=== PATIENT | female | born 1965 | race Caucasian/White ===

== ENCOUNTER 2017-01-27 17:49 | Emergency (ER) | payer MEDICARE, OTHER ==
[2017-01-27] MEDS ORDERED: KETOROLAC TROMETHAMINE 60 MG/2 ML VIAL IM ONE ×2 (19:28→19:36)
--- NOTE | 2017-01-27 19:38 | ERNOTE ---
Lower Extremity HPI - General Lower Extremities Pain: leg: right Time Seen by Provider: 01/27/17 19:14 Source: patient Exam Limitations: no limitations - Immun/Allergies/Home Medications Immunizations: IMMUNIZATION HX Immunizations Up to Date No History of Influenza Vaccine No Hx Pneumococcal Vaccination No Allergies/Adverse Reactions: Allergies Allergy/AdvReac Type Severity Reaction Status Date / Time No Known Allergies Allergy Verified 03/07/16 18:50 Home Medications: HOME MEDICATIONS Glimepiride 4 mg PO BID 12/08/12 [Last Taken 12/08/12 08:00 4 mg] Levothyroxine Sodium [Synthroid] 25 mcg PO DAILY 12/08/12 [Last Taken 12/08/12 07:00 25 mcg] Fluoxetine HCl 40 mg PO DAILY #30 12/12/12 [Last Taken 12/08/12 08:00 0800] Ibuprofen [Motrin] 800 mg PO Q8H PRN #1 bottle 12/12/12 [Last Taken Unknown] Tramadol HCl 50 tab PO QID PRN #0 12/12/12 [Last Taken 12/07/12 50 mg] metFORMIN HCL [Metformin HCl ER] 1,000 mg PO BIDWM #0 12/12/12 [Last Taken 08:00 500 mg] Insulin Glargine,Hum.rec.anlog [Lantus] 102 unit SQ BID 05/30/13 [Last Taken Unknown] Rosuvastatin Calcium [Crestor] 20 mg PO DAILY 05/30/13 [Last Taken Unknown] Albuterol Sulfate [Proair Respiclick] 90 mcg IH Q4H PRN 12/30/15 [Last Taken Unknown] Insulin Aspart [Novolog Flexpen] 100 unit SQ ACHS 12/30/15 [Last Taken Unknown] Lisinopril [Zestril] 10 mg PO DAILY 12/30/15 [Last Taken Unknown] Metoclopramide HCl [Reglan] 10 mg PO BID 12/30/15 [Last Taken Unknown] Omeprazole [Prilosec] 20 mg PO DAILY 12/30/15 [Last Taken Unknown] Pramipexole Di-HCl [Mirapex] 0.25 mg PO HS 12/30/15 [Last Taken Unknown] Ranitidine HCl [Zantac] 150 mg PO BID 12/30/15 [Last Taken Unknown] HYDROcodone/ACETAMINOPHEN [[place]amora 5-325] 1 tab PO Q6H PRN #20 tab 03/07/16 [Last Taken Unknown] Naproxen [Naprosyn] 500 mg PO BID #40 tablet 01/27/17 [Last Taken Unknown] - History of Present Illness Narrative: Patient is morbidly obese and has chronic knee and leg pain that she take tramadol for. Yesterday she started to have groin pain that she could handle till she got up this afternoon to go to the bathroom and felt something pull in her leg, the pain has been worse since, took ibuprofen and tramadol without much relieve, pain and difficulty with ambulationg, denies any other symptoms Review of Systems - Review of Systems Constitutional: Absent: recent illness, fever ENT: Absent: nose congestion, sore throat Respiratory: Absent: shortness of breath, cough Cardiology: Absent: chest pain Gastrointestinal/Abdominal: Absent: nausea, vomiting, abdominal pain Genitourinary: Present: no symptoms reported Musculoskeletal: Present: See HPI. Absent: back pain, neck pain Neurological: Absent: headache, weakness, numbness - Patient's Past Medical History Patient History - Medical: Chronic Pain, Diabetes Type 2 Insulin Dependent, Depression, GERD, Hypothyroidism, Obesity, Other Patient History - Cardiac/Respiratory: Hypertension, Hyperlipidemia Patient History - Cancer: No Hx of Cancer Patient History - Surgical Procedures: Cholecystectomy, Other Patient History - Other: None - Family History Father Family History - Medical: Mother Family History - Medical: Family History - Cardiac/Respiratory: Pneumonia - Social History Living Situations: home Abuse History: No History of abuse Psych History: No pertinent hx Smoking Status: Never smoker Have you smoked in the past 12 months: No Alcohol Use: none Drug Use: none - Immunizations Immunizations Up to Date: No Hx Pneumococcal Vaccination: No History of Influenza Vaccine: No Physical Exam - Physical Exam General Appearance: Present: wd/wn, alert, no apparent distress, obese - morbid! !! Respiratory: Present: no respiratory distress, normal breath sounds, no accessory muscle use, lungs clear Cardiovascular/Chest: Present: regular rate, rhythm Gastrointestinal/Abdominal: Present: nontender Extremity Exam: Present: normal inspection, other - had to lift large pannus to get to hip, no pain on palpation of hip, pain on palpation of right mid thigh medially (adductors), no pain on internal rotation but thigh pain on external rotation of hip Neurological Exam: Present: alert, oriented, normal mood/affect, no motor/ sensory deficits Skin Exam: Present: normal color, warm/dry ED Progress - Vital Signs Patient's Vital Signs:: I have reviewed the patient's vital signs. Vital Signs: Vital Signs 01/27/17 17:50 Temperature 36.3 C L Pulse Rate 97 Respiratory 18 Rate Blood Pressure 124/70 O2 Sat by Pulse 92 Oximetry - Progress/Reassessment Chief Complaint: Lower Extremity Pain/ Injury Progress Note-Subjective: 01/27/17 20:17 pain better after toradol, but she still has a hard time getting around and would like another pain shot 01/27/17 20:39 better after nubain Departure Clinical Impression: Muscle strain of right thigh Qualifiers: Encounter type: initial encounter Qualified Code(s): S76.911A - Strain of unspecified muscles, fascia and tendons at thigh level, right thigh, initial encounter - Departure Disposition: Home self-care Condition: Good Instructions: Muscle Strain, [id number] Additional Instructions: use the naproxen instead of the ibuprofen call your doctor after the weekend for follow up Referrals: Barber Juan MD [Primary Care Provider] - Prescriptions: Naproxen [Naprosyn] 500 mg PO BID #40 tablet
--- OUTSIDE RECORDS SUMMARY | 2017-01-27 19:43 | XMS REPORT | Continuity of Care Document ---
:1965 Author Organization [facility] ([facility]) Address [address] [place] [address] Phone [phone] Care Team Providers Name Role Phone Esdras Pack Primary Care Provider [phone] Source Comments This disclosure is being made pursuant to the Care Everywhere program, applicable federal and state laws, and may not contain all informaitonavailable regarding this patient.[facility] ([facility]) Active Allergies and Adverse Reactions No Known Allergies Current Medications Prescription Sig. Disp. Refills Start Date End Date Status lisinopril 20 mg Take 20 mg by mouth Active tablet daily. FLUoxetine 20 mg Take 40 mg by mouth Active capsule daily. traMADol 50 mg tablet Take 50 mg by mouth 4 Active times daily as needed. rosuvastatin (CRESTOR) Take 10 mg by mouth Active 10 mg tablet every evening. glimepiride 1 mg Take 1 mg by mouth 2 Active tablet times daily with meals. metFORMIN 500 mg Take 500 mg by mouth 2 Active tablet times daily with meals. ibuprofen 800 mg Take 800 mg by mouth Active tablet every 8 hours as needed. insulin glargine inject 30 Units Active (LanTUS SOLOSTAR) 100 subcutaneously daily. unit/mL (3 mL) injection pen LEVOTHYROXINE 50 mcg 03/02/2014 Active tablet NOVOLOG FLEXPEN 100 01/22/2014 Active unit/mL (3 mL) injection pen POTASSIUM CHLORIDE 20 03/24/2014 Active mEq tablet SUPPLY BD insulin UF 02/24/2014 Active original 29 x 12.7 MM pen needle TOLTERODINE 4 mg XR 03/08/2014 Active capsule Active Problems Problem Noted Date Eyelid lesion 03/31/2014 Ventral hernia 07/25/2012 Diabetes mellitus 07/25/2012 Hypertension 07/25/2012 Hyperlipidemia 07/25/2012 Social History Tobacco Use Types Packs/Day Years Used Date Never Smoker Smokeless Tobacco: Never Used Alcohol Use Drinks/Week oz/Week Comments No Last Filed Vital Signs Vital Sign Reading Time Taken Blood Pressure 132/86 03/31/2014 3:09 PM CDT Pulse 106 03/31/2014 2:17 PM CDT Temperature 37.2 C (99 F) 03/31/2014 2:17 PM CDT Respiratory Rate - - Height 1.515 m (4' 11.65") 07/25/2012 11:34 AM CDT Weight 180.441 kg (397 lb 12.8 oz) 07/25/2012 11:34 AM CDT Body Mass Index 78.62 07/25/2012 11:34 AM CDT Oxygen Saturation - - Plan of Care Health Maintenance Due Date Last Done Comments HCV Screening 1965 Hepatitis B Vaccine (1 of 3 - Primary Series) 1965 Tdap Vaccine 1975 DIABETIC: Cholesterol 1982 Diabetic: Hdl 1982 DIABETIC: Hemoglobin A1C 1982 Diabetic: Ldl 1982 DIABETIC: Microalbumin 1982 DIABETIC: Triglycerides 1982 MMR Vaccine 1982 Td Vaccine 1982 Pneumococcal Vaccine (1 of 1 - PPSV23) 1983 Cervical Cancer Screening 1994 Mammogram 2004 DIABETIC: Foot Exam 08/01/2012 DIABETIC: Retinal Eye Exam 08/01/2012 Colonoscopy 2014 Influenza Vaccine: Seasonal (#1) 05/23/2016 Results from Last 3 Months Not on file
[2017-01-27] MEDS ORDERED: NALBUPHINE HCL 20 MG/ML AMPUL IM ONE (20:17)
[2017-01-27] MEDS ORDERED: NALBUPHINE HCL 20 MG/ML AMPUL ONE (20:18)
[2017-01-27 20:58] VITALS: BP 128/68
== END 2017-01-27 20:40 | disposition home or self-care (01) ==
LOC: ER 17:49
DX: S76.911A Strain of unspecified muscles, fascia and tendons at thigh level, right thigh, initial encounter (principal); X50.1XXA Overexertion from prolonged static or awkward postures, initial encounter

== ENCOUNTER 2017-05-17 09:22 | Emergency (ER) | payer MEDICARE, OTHER ==
[2017-05-17 09:48] VITALS: BP 145/78
[2017-05-17] MEDS ORDERED: KETOROLAC TROMETHAMINE 60 MG/2 ML VIAL IM ONE (10:01)
[2017-05-17] MEDS ORDERED: DIPHTH,PERTUSS(ACELL),TET VAC 0.5 ML VIAL IM ONE ×2 (10:01→10:04)
[2017-05-17] MEDS ORDERED: KETOROLAC TROMETHAMINE 30 MG/ML VIAL ONE (10:04)
--- NOTE | 2017-05-17 10:20 | ERNOTE ---
Animal Bite ER Date of Service: 05/17/17 Presenting Symptoms: bitten Time Seen by Provider: 05/17/17 09:55 Source: patient Immunizations: IMMUNIZATION HX Immunizations Up to Date No History of Influenza Vaccine No Hx Pneumococcal Vaccination No Allergies/Adverse Reactions: Allergies No Known Allergies Allergy (Verified 03/07/16 18:50) Home Medications: HOME MEDICATIONS Glimepiride 4 mg PO BID 12/08/12 [Last Taken 12/08/12 08:00 4 mg] Levothyroxine Sodium [Synthroid] 25 mcg PO DAILY 12/08/12 [Last Taken 12/08/12 07:00 25 mcg] Ibuprofen [Motrin] 800 mg PO Q8H PRN #1 bottle 12/12/12 [Last Taken Unknown] Insulin Glargine,Hum.rec.anlog [Lantus] 102 unit SQ BID 05/30/13 [Last Taken Unknown] Rosuvastatin Calcium [Crestor] 20 mg PO DAILY 05/30/13 [Last Taken Unknown] Albuterol Sulfate [Proair Respiclick] 90 mcg IH Q4H PRN 12/30/15 [Last Taken Unknown] Lisinopril [Zestril] 10 mg PO DAILY 12/30/15 [Last Taken Unknown] Metoclopramide HCl [Reglan] 10 mg PO BID 12/30/15 [Last Taken Unknown] Omeprazole [Prilosec] 20 mg PO DAILY 12/30/15 [Last Taken Unknown] Pramipexole Di-HCl [Mirapex] 0.25 mg PO HS 12/30/15 [Last Taken Unknown] Ranitidine HCl [Zantac] 150 mg PO BID 12/30/15 [Last Taken Unknown] Amox Tr/Potassium Clavulanate [Augmentin 875-125 Tablet] 1 each PO Q12H #20 tablet 05/17/17 [Last Taken Unknown] Bupropion HCl [Wellbutrin Xl] 300 mg PO DAILY 05/17/17 [Last Taken Unknown] Cholecalciferol (Vitamin D3) [Vitamin D3] 5,000 unit PO DAILY 05/17/17 [Last Taken Unknown] Escitalopram Oxalate [Lexapro] 10 mg PO DAILY 05/17/17 [Last Taken Unknown] Exenatide [Byetta] 5 mcg SQ BID 05/17/17 [Last Taken Unknown] Narrative: 51 year old female presents to the ER for a dog bite. Patient states her 2 dogs were fighting and she stick her left hand in between them to break up the fight when she was bitten. patient has several small superficial skin tears around her thumb and a 1cm laceration. patient states that they were her 2 dogs , and they are up to date on their shots. the dogs are small less that 15 pounds each. Date (Duration): 05/17/17 Onset Time: today Location of Incident: Reports: home Animal Type: Reports: dog, family pet Animal Appearance: healthy Animal's Immunization Status: Reports: UTD Observation/Capture: Reports: animal known Context of Attack: Reports: animals fighting Severity of injury: Reports: bitten Location of Injury: Reports: upper extremity (L) Associated symptoms: Reports: pain on movement. Denies: numbness distally, tingling Review of Systems - Review of Systems Constitutional: Present: no symptoms reported EYE: Present: no symptoms reported ENT: Present: no symptoms reported Respiratory: Present: no symptoms reported Cardiology: Present: no symptoms reported Gastrointestinal/Abdominal: Present: no symptoms reported Genitourinary: Present: no symptoms reported Musculoskeletal: Present: See HPI Skin: Present: See HPI Neurological: Present: no symptoms reported Endocrine: Present: no symptoms reported Hematologic/Lymphatic: Present: no symptoms reported Psych: Present: no symptoms reported All Other Systems: All systems neg except as marked - Patient's Past Medical History Patient History - Medical: Chronic Pain, Diabetes Type 2 Insulin Dependent, Depression, GERD, Hypothyroidism, Obesity, Other Patient History - Cardiac/Respiratory: Hypertension, Hyperlipidemia Patient History - Cancer: No Hx of Cancer Patient History - Surgical Procedures: Cholecystectomy, Other Patient History - Other: None - Family History Father Family History - Medical: Mother Family History - Medical: Family History - Cardiac/Respiratory: Pneumonia - Social History Living Situations: home Abuse History: No History of abuse Psych History: No pertinent hx Alcohol Use: none Drug Use: none - Immunizations Immunizations Up to Date: No Hx Pneumococcal Vaccination: No History of Influenza Vaccine: No Physical Exam - Physical Exam General Appearance: Present: wd/wn, alert, no apparent distress Head Exam: Present: normal inspection, no evidence of injury Eye Exam: Normal inspection: bilateral Ears, Nose, Throat: Present: normal ENT inspection Neck: Present: normal inspection, nontender Respiratory: Present: no respiratory distress, normal breath sounds, lungs clear Cardiovascular/Chest: Present: regular rate, rhythm, normal peripheral pulses Peripheral Pulses: N=norm/S=strong/W=weak/B=bound/A=absent: Radial (R): Normal, Radial (L): Normal, Dorsalis-pedis (R): Normal, Dorsalis-pedis (L): Normal Gastrointestinal/Abdominal: Present: normal bowel sounds, nontender, soft Back Exam: Present: normal inspection, normal range of motion Extremity Exam: Present: normal except - - left thumb several small superficial lacerations and 1 cm lac at base of themb. ROM is WNL for patient. Min bleeding. , normal range of motion. Absent: bony tenderness, joint redness, joint swelling Neurological Exam: Present: alert, oriented, normal mood/affect Skin Exam: Present: normal color, warm/dry Lymphatic Exam: Present: no adenopathy ED Progress - Vital Signs Vital Signs: Vital Signs 05/17/17 09:36 Temperature 37.1 C Pulse Rate 20 L Respiratory 18 Rate Blood Pressure 145/78 O2 Sat by Pulse 93 Oximetry - X-Ray X-Ray #1 X-Ray: hand Interpretation: Reviewed by me X-ray Comments: no foreign body observed. no acute fx observed. - Progress/Reassessment Chief Complaint: Animal Bite Procedures Left Lower Distal Hand 1st Digit I & D Prep: betadine prep Wound's Depth/Shape: superficial Wound Explored: clean, in bloodless field, no foreign body Wound Intervention: irrigated w/saline Wound Repaired With: Steri-strips Layer Closure: Simple Wound Dressing: sterile dressing applied Complications: Pt albino procedure well Plan - Plan Plan: home with dressing change supplies, and abx, patient will follow up with PCP in 3 days for wound check Departure Clinical Impression: Dog bite of finger Qualifiers: Encounter type: initial encounter Qualified Code(s): S61.259A - Open bite of unspecified finger without damage to nail, initial encounter; W54.0XXA - Bitten by dog, initial encounter - Departure Disposition: Home Follow Up Needed Condition: Good Instructions: Puncture Wound, [id number], How to Change Your Dressing, Easy- to-Read, Animal Bite Additional Instructions: continue any previous home medications. take antibiotics as prescribed. Follow up with your Dr Mccauley 1pm on Monday for a wound check. change your bandaid daily. Return to ER if pain is not able to be controlled with OTC pain medication, or your develop any s/s of infection. Referrals: Pawel García MD [Primary Care Provider] - Prescriptions: Amox Tr/Potassium Clavulanate [Augmentin 875-125 Tablet] 1 each PO Q12H #20 tablet
== END 2017-05-17 10:50 | disposition home or self-care (01) ==
LOC: ER 09:22
DX: S61.052A Open bite of left thumb without damage to nail, initial encounter (principal); E03.9 Hypothyroidism, unspecified; E11.9 Type 2 diabetes mellitus without complications; Z79.4 Long term (current) use of insulin; I10 Essential (primary) hypertension; E78.5 Hyperlipidemia, unspecified; K21.9 Gastro-esophageal reflux disease without esophagitis; F32.9 Major depressive disorder, single episode, unspecified; W54.0XXA Bitten by dog, initial encounter; Y92.009 Unspecified place in unspecified non-institutional (private) residence as the place of occurrence of the external cause; Z23 Encounter for immunization

== ENCOUNTER 2017-06-02 18:29 | Emergency (ER) | payer MEDICARE, OTHER ==
[2017-06-02] MEDS ORDERED: MORPHINE SULFATE 4 MG/ML SYRG IV ONE (18:36)
[2017-06-02] MEDS ORDERED: MORPHINE SULFATE 4 MG/ML SYRG ONE (18:40)
[2017-06-02 19:13] LABS: Hematocrit 45.8 % (37.0-47.0); Hemoglobin 15.1 gm/dL (12.5-16.0); Mean Cell Volume 87.1 fl (78-100); Mean Corpuscular Hemoglobin 28.7 pg (27-31); Mean Platelet Volume 9.8 fl (6.0-9.5); Neutrophil # 11.6 K/mm3 (1.3-6.0); Neutrophil % 88.5 % (42-75.0); Platelet Count 262 K/mm3 (150-450); Red Blood Count 5.26 M/mm3 (4.2-5.4); Red Cell Distribution Width 13.7 % (11.5-14.0); White Blood Count 13.1 K/mm3 (4.0-10.5)
[2017-06-02] MEDS ORDERED: MORPHINE SULFATE 2 MG/ML DISP.SYRIN ONE (19:13)
[2017-06-02] MEDS ORDERED: MORPHINE SULFATE 2 MG/ML DISP.SYRIN IV ONE (19:18)
[2017-06-02] MEDS ORDERED: NORMAL SALINE 1,000 ML IV ONE (19:19)
[2017-06-02 19:29] LABS: Albumin * 3.3 gm/dl (3.4-5.0); Anion Gap 16.9 mmol/L (6.8-13.8); BUN/Creatinine Ratio 13.3 (9.0-21.6); Bilirubin, Total 0.9 mg/dL (0.0-1.1); Ca. Corrected For Albumin 9.3 mg/dL (8.4-10.2); Calcium * 9.1 mg/dL (7.9-10.9); Carbon Dioxide 25.3 mmol/L (24-32.6); Potassium 5.2 mmol/L (3.4-4.6)
--- NOTE | 2017-06-02 19:48 | ERNOTE ---
Abdominal HPI - Narrative Date of Service: 06/02/17 - General Chief Complaint: Abdominal Pain Source: patient Exam Limitations: no limitations - Immun/Allergies/Home Medications Immunizatons: IMMUNIZATION HX Immunizations Up to Date Yes History of Influenza Vaccine Yes Hx Pneumococcal Vaccination No Allergies/Adverse Reactions: Allergies No Known Allergies Allergy (Verified 03/07/16 18:50) Home Medications: HOME MEDICATIONS Glimepiride 4 mg PO BID 12/08/12 [Last Taken 12/08/12 08:00 4 mg] Levothyroxine Sodium [Synthroid] 50 mcg PO DAILY 12/08/12 [Last Taken 12/08/12 07:00 25 mcg] Ibuprofen [Motrin] 800 mg PO Q8H PRN #1 bottle 12/12/12 [Last Taken Unknown] Insulin Glargine,Hum.rec.anlog [Lantus] 80 unit SQ BID 05/30/13 [Last Taken Unknown] Rosuvastatin Calcium [Crestor] 20 mg PO DAILY 05/30/13 [Last Taken Unknown] Albuterol Sulfate [Proair Respiclick] 90 mcg IH Q4H PRN 12/30/15 [Last Taken Unknown] Lisinopril [Zestril] 10 mg PO DAILY 12/30/15 [Last Taken Unknown] Metoclopramide HCl [Reglan] 10 mg PO TID 12/30/15 [Last Taken Unknown] Omeprazole [Prilosec] 20 mg PO DAILY 12/30/15 [Last Taken Unknown] Pramipexole Di-HCl [Mirapex] 0.25 mg PO HS 12/30/15 [Last Taken Unknown] Ranitidine HCl [Zantac] 150 mg PO BID 12/30/15 [Last Taken Unknown] Amox Tr/Potassium Clavulanate [Augmentin 875-125 Tablet] 1 each PO Q12H #20 tablet 05/17/17 [Last Taken Unknown] Bupropion HCl [Wellbutrin Xl] 300 mg PO DAILY 05/17/17 [Last Taken Unknown] Cholecalciferol (Vitamin D3) [Vitamin D3] 5,000 unit PO DAILY 05/17/17 [Last Taken Unknown] Escitalopram Oxalate [Lexapro] 10 mg PO DAILY 05/17/17 [Last Taken Unknown] Exenatide [Byetta] 5 mcg SQ BID 05/17/17 [Last Taken Unknown] - History of Present Illness Narrative: onset of abdominal pain this am with nausea and vomiting with abdominal mass history of sub umbilcal hernia that prior to this was reducible, hernia came out this am and has not reduced Timing: constant, getting worse Quality: severe, fullness, sharpness Activities at Onset: none Modifying Factors - (Improves): Present: other - none Associated Symptoms: Present: nausea, vomiting, loss of appetite Prior Abdominal Problems: Present: similar symptoms Review of Systems - Review of Systems Constitutional: Present: weakness, malaise EYE: Present: no symptoms reported ENT: Present: no symptoms reported Respiratory: Present: no symptoms reported Cardiology: Present: no symptoms reported Gastrointestinal/Abdominal: Present: See HPI, nausea, vomiting, abdominal pain Genitourinary: Present: no symptoms reported Musculoskeletal: Present: no symptoms reported Skin: Present: no symptoms reported Neurological: Present: no symptoms reported Endocrine: Present: no symptoms reported Hematologic/Lymphatic: Present: no symptoms reported Psych: Present: no symptoms reported All Other Systems: All systems neg except as marked - Patient's Past Medical History Patient History - Medical: Chronic Pain, Diabetes Type 2 Insulin Dependent, Depression, GERD, Hypothyroidism, Obesity, Other Patient History - Cardiac/Respiratory: Hypertension, Hyperlipidemia Patient History - Cancer: No Hx of Cancer Patient History - Surgical Procedures: Cholecystectomy, Other Patient History - Other: None - Family History Father Family History - Medical: Family History - Cardiac/Respiratory: No pertinent hx Mother Family History - Medical: Family History - Cardiac/Respiratory: Pneumonia Family History - Cancer: No pertinent family hx - Social History Living Situations: home Abuse History: No History of abuse Psych History: No pertinent hx Smoking Status: Former smoker Have you smoked in the past 12 months: No Do you dip or chew tobacco: No Alcohol Use: none Drug Use: none - Immunizations Immunizations Up to Date: Yes Hx Pneumococcal Vaccination: No History of Influenza Vaccine: Yes Physical Exam - Physical Exam General Appearance: Present: alert, severe distress, anxious Head Exam: Present: normal inspection, no evidence of injury Eye Exam: Normal inspection: bilateral, PERRL: bilateral, EOMI: bilateral Ears, Nose, Throat: Present: normal ENT inspection, normal pharynx Neck: Present: normal inspection, nontender Respiratory: Present: no respiratory distress, normal breath sounds, no accessory muscle use, chest nontender, lungs clear Cardiovascular/Chest: Present: regular rate, rhythm, no murmur, normal peripheral pulses Peripheral Pulses: N=norm/S=strong/W=weak/B=bound/A=absent: Carotid (R): Normal , Carotid (L): Normal, Radial (R): Normal, Radial (L): Normal, Femoral (R): Normal, Femoral (L): Normal, Dorsalis-pedis (R): Normal, Dorsalis-pedis (L): Normal Gastrointestinal/Abdominal: Present: abnormal bowel sounds, distended, other - large ssuprapubuic mass ,hard non reducible Back Exam: Present: normal inspection, normal range of motion, no CVA tenderness , no vertebral tenderness Extremity Exam: Present: normal inspection Neurological Exam: Present: alert, oriented, normal mood/affect, no motor/ sensory deficits DTR: N=norm/NB=norm/brisk/A=abs/DD=dull/dimin/HC=hyperactive: Bicep (R): Normal , Bicep (L): Normal, Tricep (R): Normal, Tricep (L): Normal, Knee (R): Normal, Knee (L): Normal, Ankle (R): Normal, Ankle (L): Normal Skin Exam: Present: normal color, warm/dry ED Progress - Results and Orders Patient's Lab Results:: I have reviewed the patient's lab results. - Vital Signs Patient's Vital Signs:: I have reviewed the patient's vital signs. Vital Signs: Vital Signs 06/02/17 06/02/17 06/02/17 18:34 18:35 18:50 Temperature 37.1 C Pulse Rate 106 H 108 H 108 H Respiratory 18 13 13 Rate Blood Pressure 154/86 154/86 164/89 O2 Sat by Pulse 94 90 85 L Oximetry 06/02/17 06/02/17 19:04 19:23 Temperature Pulse Rate 108 H 107 H Respiratory 24 H 13 Rate Blood Pressure 159/84 125/72 O2 Sat by Pulse 90 95 Oximetry - Progress/Reassessment Chief Complaint: Abdominal Pain Progress:: Unchanged - Transfer of Care Expected Disposition: Transfer Additional Notes: patient evaluated by surgeon ankit surgeon dx of incarcerated bowel, concern services not available at [facility] recommend transfer to [facility] , dr orourke accepts patient for ttranfer Plan - Plan Plan: tranfer [facility] Departure - Departure Clinical Impression: Bowel infarction Disposition: [facility] Referrals: Pawel García MD [Primary Care Provider] -
[2017-06-02] MEDS ORDERED: MORPHINE SULFATE 10 MG/ML SYRG ONE (20:29)
[2017-06-02] MEDS ORDERED: MORPHINE SULFATE 10 MG/ML SYRG IV ONE (20:29)
[2017-06-02 20:58] VITALS: BP 166/75
== END 2017-06-02 21:39 | disposition short-term general hospital (02) ==
LOC: ER 18:29
DX: K55.069 Acute infarction of intestine, part and extent unspecified (principal); Z87.891 Personal history of nicotine dependence

== ENCOUNTER 2019-08-15 12:19 | Observation (INO) ==
[2019-08-15 12:44] LABS: Hemoglobin 12.3 gm/dL (12.5-16.0); Mean Cell Volume 91.3 fl (78-100); Mean Corpuscular Hemoglobin 28.1 pg (27-31); Mean Corpuscular Hgb Conc 30.8 g/dl (32-36); Mean Platelet Volume 9.7 fl (8-12.5); Neutrophil # 4.4 K/mm3 (1.3-6.0); Neutrophil % 74.1 % (42-75.0); Platelet Count 157 K/mm3 (150-450); Red Blood Count 4.38 M/mm3 (4.2-5.4); Red Cell Distribution Width 17.2 % (11.5-14.0); White Blood Count 5.9 K/mm3 (4.0-10.5)
[2019-08-15 13:03] LABS: Troponin I Less than 0.017 ng/mL (0.00-0.10)
[2019-08-15 13:06] LABS: ALT 8 U/L (19-67); AST 25 U/L (0-48); Albumin * 3.2 gm/dl (3.4-5.0); Alkaline Phosphatase * 194 U/L (50-170); Anion Gap 9.9 mmol/L (6.8-13.8); BNP * 275 pg/mL (5-205); BUN/Creatinine Ratio 15.2 (9.0-21.6); Blood Urea Nitrogen 12 mg/dL (3-23); Ca. Corrected For Albumin 8.5 mg/dL (8.4-10.2); Calcium * 8.2 mg/dL (7.9-10.9); Carbon Dioxide 32.7 mmol/L (24-32.6); Chloride 103 mmol/L (97-106); Glucose * 115 mg/dL (70-110); Potassium 3.6 mmol/L (3.4-4.6); Sodium 142 mmol/L (132-142); Total Protein 7.5 gm/dL (6.2-8.2)
[2019-08-15 13:38] LABS: Prothrombin Time (Patient) 11.4 Seconds (9.1-10.7)
[2019-08-15 13:39] LABS: INR 1.16 INR (0.92-1.08); Partial Thrombolplastin Time 24.5 Seconds (24-32)
--- NOTE | 2019-08-15 13:52 | ERNOTE ---
Dyspnea - Date Date of Service: 08/15/19 - General Presenting Symptoms: shortness of breath Time Seen by Provider: 08/15/19 12:39 Source: patient, family, RN notes reviewed Exam Limitations: no limitations - Immun/Allergies/Home Medications Immunizations: IMMUNIZATION HX Immunizations Up to Date Yes History of Influenza Vaccine Yes Hx Pneumococcal Vaccination Yes Allergies/Adverse Reactions: Allergies No Known Allergies Allergy (Verified 08/15/19 12:35) Home Medications: HOME MEDICATIONS Levothyroxine Sodium [Synthroid] 50 mcg PO DAILY 12/08/12 [Last Taken 12/08/12 07:00 25 mcg] Ibuprofen [Motrin] 800 mg PO Q8H PRN #1 bottle 12/12/12 [Last Taken Unknown] Lisinopril [Zestril] 10 mg PO DAILY 12/30/15 [Last Taken Unknown] Omeprazole [Prilosec] 20 mg PO DAILY 12/30/15 [Last Taken Unknown] Pramipexole Di-HCl [Mirapex] 0.5 mg PO HS 12/30/15 [Last Taken Unknown] Bupropion HCl [Wellbutrin Xl] 300 mg PO DAILY 05/17/17 [Last Taken Unknown] Escitalopram Oxalate [Lexapro] 10 mg PO DAILY 05/17/17 [Last Taken Unknown] rosuvastatin 20 mg tablet 20 mg PO DAILY #30 tab 06/19/18 [Last Taken Unknown] Celecoxib 100 mg PO DAILY 08/15/19 [Last Taken Unknown] Ferrous Sulfate 325 mg PO DAILY 08/15/19 [Last Taken Unknown] Furosemide [Lasix] 40 mg PO DAILY 08/15/19 [Last Taken Unknown] Insulin Aspart [Novolog Flexpen] 30 unit SQ 0800 08/15/19 [Last Taken Unknown] Insulin Aspart [Novolog Flexpen] 100 unit SQ 1200,1700 08/15/19 [Last Taken Unknown] Insulin Glargine,Hum.rec.anlog [Basaglar Kwikpen U-100] 30 unit SQ HS 08/15/19 [Last Taken Unknown] Pramipexole Di-HCl [Mirapex] 1 mg PO TID 08/15/19 [Last Taken Unknown] - History of Present Illness Narrative: Cyndie is a 54 year old female brought to the ED from home by a family member for progressively worsening dyspnea and lower extremity edema. She reports that her PCP discontinued her Lasix 2 weeks ago. She was taking 80 mg daily, but she has continued to take 40 mg daily since she still had some left. She states that her legs are painful. She has gained at least 10 pounds in the past couple of weeks. She reports being unable to ambulate more than a couple feet without becoming s everely dyspneic and having to stop and rest. She is in the process of transferring her primary care here. Modifying Factors - (Improves): Reports: rest Modifying Factors (Worsens): Reports: activity Associated Symptoms-Dyspnea: Reports: leg/calf pain, ankle/leg swelling. Denies: chest pain/discomfort, cough Prior Treatment: Reports: recently seen - by PCP, previous episodes. Denies: recently hospitalized Review of Systems - Review of Systems Constitutional: Present: decreased activity level. Absent: fever, chills EYE: Present: no symptoms reported ENT: Absent: nose congestion, sore throat Respiratory: Present: shortness of breath. Absent: cough Cardiology: Present: edema. Absent: chest pain, syncope Gastrointestinal/Abdominal: Absent: nausea, vomiting, diarrhea, abdominal pain Genitourinary: Absent: dysuria, decreased urinary output Musculoskeletal: Present: muscle pain. Absent: joint pain Skin: Absent: rash, lesions Neurological: Absent: headache, dizziness/light-headedness Endocrine: Present: no symptoms reported Hematologic/Lymphatic: Present: easy bruising, easy bleeding Psych: Present: no symptoms reported Medical History (Last Updated 08/15/19 @ 16:23 by Divina Bennett NP) CHF (congestive heart failure) Diabetes Hypothyroidism Morbid obesity Surgical History: Surgical History (Last Reviewed 08/15/19 @ 16:23 by Divina Bennett NP) H/O hernia repair abdominal History of carpal tunnel surgery History of cholecystectomy History of mandibular surgery Family History: Family History (Last Reviewed 08/15/19 @ 16:23 by Divina Bennett NP) Sister Diabetes Father CHF (congestive heart failure) Father Lung cancer Social History: (Last Reviewed 08/15/19 @ 16:24 by Divina Bennett NP) Tobacco: Smoking Status: Never smoker Alcohol: alcohol intake: never Substance Use: substance use type: does not use Physical Exam - Physical Exam General Appearance: Present: alert, mild distress - dyspneic with minimal exertion, obese - extreme, morbid, other - Pleasant, talkative Head Exam: Present: normal inspection Eye Exam: Normal inspection: bilateral Neck: Present: normal inspection, nontender, supple Respiratory: Present: no respiratory distress, no accessory muscle use, lungs clear, decreased breath sounds - d/t large body habitus Cardiovascular/Chest: Present: regular rate, rhythm, no murmur. Absent: normal peripheral pulses Peripheral Pulses: N=norm/S=strong/W=weak/B=bound/A=absent: Dorsalis-pedis (R): Weak, Dorsalis-pedis (L): Weak Gastrointestinal/Abdominal: Present: nontender, soft, distended - obese Extremity Exam: Present: decreased range of motion - bilateral lower extremities, calf tenderness - bilaterally, extremity edema - severe, bilateral legs Neurological Exam: Present: alert, oriented, normal mood/affect, no motor/sensory deficits Skin Exam: Present: normal color, warm/dry, other - petichiae and purpura to lower abdomen Progress - Results and Orders Patient's Lab Results:: I have reviewed the patient's lab results. - Vital Signs Patient's Vital Signs:: I have reviewed the patient's vital signs. Vital Signs: Vital Signs 08/15/19 12:28 08/15/19 12:55 08/15/19 13:08 Temperature 36.5 C Pulse Rate 87 94 92 Respiratory Rate 23 H 28 H Blood Pressure 140/67 H 118/78 O2 Sat by Pulse Oximetry 93 93 08/15/19 13:40 Temperature Pulse Rate 84 Respiratory Rate 18 Blood Pressure 135/75 O2 Sat by Pulse Oximetry 91 L - EKG EKG #1 EKG: NSR EKG read: Reviewed by me - X-Ray X-Ray #1 X-Ray: chest Interpretation: Reviewed by me X-ray Comments: Chest Single View *: Overall underpenetrated film, likely secondary due to patient's morbid obesity. Severely hypoinflated lungs. No vasile consolidation. Increased vascular markings are seen throughout. No pneumothorax or pleural fluid collections apparent. Mild to moderate cardiomegaly noted, which is a significant change since 2007. Trachea is in normal position given patient positioning. Osseous structures are grossly intact. Likely an old fracture of the right clavicle, stable. IMPRESSION: 1. Hypoventilatory changes. 2. Interval development of cardiomegaly. 3. Pulmonary venous congestion suggested. Electronically signed by Abiel Martínez M.D.. - CT/Ultrasound CT/Ultrasound Narrative: CTA Chest: IMPRESSION: 1. Suboptimal exam for acute pulmonary thromboembolism. Evaluation of the subsegmental/segmental vessels are limited by multiple factors including patient's body habitus, opacification as well as respiratory motion blurring. No definite signs of large central pulmonary embolism. 2. Suboptimal opacification of the thoracic aorta for angiographic evaluation without obvious acute findings. 3. Pulmonary vascular congestion, small/trace bilateral pleural fluid, and interstitial pulmonary edema suggested. Differential diagnosis for interlobular septal thickening also includes atypical pneumonia/infection, versus lymphangitic spread of tumor. Correlate clinically. 4. Nonspecific mediastinal lymphadenopathy with the largest lymph node at the subcarinal region. Could represent reactive lymph node due to infection/inflammatory process versus potential metastatic disease. 5. Cardiomegaly. 6. Hepatosplenomegaly. Fatty liver. 7. Enlarged portacaval and eden hepatis lymph nodes are noted in the upper abdomen. These are also nonspecific. Correlate clinically for intra-abdominal process or metastatic malignancy. Consider additional imaging evaluation of the abdomen/pelvis. 8. Multinodular goiter with a dominant left thyroid nodule as above. Recommend routine thyroid ultrasound. 9. Additional comments and details are as above. Electronically signed by Abiel Martínez M.D.. US Venous Ext Bilat Complete Bilateral common femoral, greater saphenous, popliteal, posterior tibial veins were visualized, and demonstrates normal appearance, with normal color flow. The bilateral femoral veins could not be visualized adequately, as per technologist, due to patient's morbid obesity, despite efforts at optimizing imaging by 2 different technologists. IMPRESSION: Suboptimal examination of the bilateral lower extremity veins, with nonvisualization of the bilateral femoral veins due to patient's morbid obesity. The visualized lower extremity vein segments demonstrate overall normal appearance without definite signs of deep venous thrombosis but the examination is overall nondiagnostic. Electronically signed by Abiel Martínez M.D.. - Progress/Reassessment Chief Complaint: Dyspnea Progress:: Unchanged Plan - Plan Plan: The patient becomes severely dyspneic with minimal exertion and desats into the mid 80's. She is also hypoxic at times at rest. This appears to be due to an exacerbation of her CHF after her lasix dose was decreased. 60 mg Lasix IVP ordered. Dr. Armas was contacted and the patient will be admitted to observation status. Departure Clinical Impression: Hypoxia Acute CHF (congestive heart failure) Qualifiers: Heart failure type: unspecified Qualified Code(s): I50.9 - Heart failure, uns pecified - Departure Disposition: Still a patient Condition: Fair
[2019-08-15] MEDS ORDERED: FUROSEMIDE 10 MG/ML VIAL IV ONE (17:05)
--- NOTE | 2019-08-15 19:12 | HP ---
Chief Complaint - Chief Complaint Date of Service: 08/15/19 Time of Service: 19:05 Chief Complaint: Shortness of breath. History of congestive heart failure and morbid obesity. History of Present Illness: Cyndie Cabrera is a 54-year-old morbidly obese female admitted through ER with congestive heart failure. She presented with chief complaint of dyspnea at rest and worse on exertion. She reports that she had been on furosemide 40 mg 2 p.o. twice daily and was recently reduced to just once daily. She is been taking that once daily in the morning and has been since then that she has been retaining more fluid and is developed her CHF again. She is doing better now that she is on oxygen and reports that she has diuresed quite a lot of urine since being given furosemide IV in the emergency room. Medical History (Last Reviewed 08/15/19 @ 17:54 by Dayami Healy RN) CHF (congestive heart failure) Diabetes Hypothyroidism Morbid obesity Surgical History: Surgical History (Last Reviewed 08/15/19 @ 17:54 by Dayami Healy RN) H/O hernia repair abdominal History of carpal tunnel surgery History of cholecystectomy History of mandibular surgery Family History: Family History (Last Reviewed 08/15/19 @ 17:54 by Dayami Healy RN) Sister Diabetes Father CHF (congestive heart failure) Father Lung cancer Social History: (Last Reviewed 08/15/19 @ 17:54 by Dayami Healy RN) Tobacco: Smoking Status: Never smoker Alcohol: alcohol intake: never Substance Use: substance use type: does not use Review Of Systems (GEN) - Review of Systems EENTM: Present: No Symptoms Reported Respiratory: Present: Shortness of Breath Cardiac: Present: Palpitations Abdominal: Present: No Symptoms Reported Genitourinary: Present: No Symptoms Reported Musculoskeletal: Present: No Symptoms Reported Neurological: Present: No Symptoms Reported Skin: Present: No Symptoms Reported Endocrine: Present: No Symptoms Reported Immunizations: IMMUNIZATION HX Immunizations Up to Date Yes History of Influenza Vaccine Yes Hx Pneumococcal Vaccination Yes Allergies/Adverse Reactions: Allergies Allergy/AdvReac Type Severity Reaction Status Date / Time No Known Allergies Allergy Verified 08/15/19 12:35 Home Medications: HOME MEDICATIONS Levothyroxine Sodium [Synthroid] 50 mcg PO DAILY 12/08/12 [Last Taken 12/08/12 07:00 25 mcg] Ibuprofen [Motrin] 800 mg PO Q8H PRN #1 bottle 12/12/12 [Last Taken Unknown] Lisinopril [Zestril] 10 mg PO DAILY 12/30/15 [Last Taken Unknown] Omeprazole [Prilosec] 20 mg PO DAILY 12/30/15 [Last Taken Unknown] Pramipexole Di-HCl [Mirapex] 0.5 mg PO HS 12/30/15 [Last Taken Unknown] Bupropion HCl [Wellbutrin Xl] 300 mg PO DAILY 05/17/17 [Last Taken Unknown] Escitalopram Oxalate [Lexapro] 10 mg PO DAILY 05/17/17 [Last Taken Unknown] Celecoxib 100 mg PO DAILY 08/15/19 [Last Taken Unknown] Ferrous Sulfate 325 mg PO DAILY 08/15/19 [Last Taken Unknown] Furosemide [Lasix] 40 mg PO DAILY 08/15/19 [Last Taken Unknown] Insulin Aspart [Novolog Flexpen] 25 unit SQ 1200,1700 08/15/19 [Last Taken Unknown] Insulin Aspart [Novolog Flexpen] 30 unit SQ 0700 08/15/19 [Last Taken Unknown] Insulin Glargine,Hum.rec.anlog [Basaglar Kwikpen U-100] 30 unit SQ HS 08/15/19 [Last Taken Unknown] Pramipexole Di-HCl [Mirapex] 1 mg PO TID 08/15/19 [Last Taken Unknown] Rosuvastatin Calcium [Crestor] 20 mg PO HS 08/15/19 [Last Taken Unknown] Exam - Exam Vital Signs: Vital Signs - Last Taken Temp 37.0 C 08/15/19 17:50 Pulse 87 08/15/19 17:50 Resp 24 H 08/15/19 17:50 BP 141/84 H 08/15/19 17:50 Pulse Ox 95 08/15/19 17:50 Constitutional: Present: Alert, Oriented x3, Cooperative, Well developed, Well nourished, Other, Obese, Morbidly obese - Morbidly obese with BMI of 77.8 and a weight of 180.8 kg ENT Exam: Present: normal ENT inspection, hearing grossly normal, pharynx normal, TMs normal Eye Exam: bilateral eye: normal inspection, PERRL, EOMI Neck: Present: non-tender, full range of motion, supple, normal inspection, trachea midline Back Exam: Present: normal inspection, no CVA tenderness, no vertebral tenderness Breasts: Present: Exam deferred, Nontender Respiratory: Present: chest non-tender, lungs clear, normal breath sounds, no respiratory distress, no accessory muscle use, respiratory distress, decreased breath sounds, accessory muscle use, crackles, rales, expiration (prolonged) Cardiovascular/Chest: Present: normal peripheral pulses, no chest tenderness, no gallop, JVD, irregularly irregular Peripheral Pulses: carotid (R): 2+, carotid (L): 2+, radial (R): 2+, radial (L): 2+ Abdomen: Present: Normal bowel sounds, soft, nontender, nondistended, obese /Rectal: Present: Exam deferred Extremity: Present: normal range of motion, non-tender, normal inspection, lower extremity edema Skin Exam: Present: normal color, warm/dry, no cyanosis, cool/dry Lymphatic: Present: no adenopathy Neurologic: Present: 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, normal cerebellar test, no motor/sensory deficits, alert, normal mood/affect, oriented x 3, abnormal 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 II-XII Appearance: Present: appropriate appearance, appropriate insight, neat, no memory impairment Eye contact: Present: cooperative, good eye contact, normal speech Thoughts: Present: normal thought pattern, no apparent hallucination Diagnostic Studies: Abnormal Lab Results 08/15/19 08/15/19 08/15/19 Range/Units 12:00 12:00 12:41 Hgb 12.3 L (12.5-16.0) gm/dL MCHC 30.8 L (32-36) g/dl RDW 17.2 H (11.5-14.0) % Lymphocytes % 16.0 L (20-51) % Lymphocytes # 0.95 L (1.5-3.5) k/mm3 PT 11.4 H (9.1-10.7) Seconds INR (Anticoag Therapy) 1.16 H (0.92-1.08) INR D-Dimer 0.74 H (0.19-0.49) ug/mL Carbon Dioxide (24-32.6) mmol/L Random Glucose (70-110) mg/dL ALT (19-67) U/L Alkaline Phosphatase (50-170) U/L B-Natriuretic Peptide (5-205) pg/mL Albumin (3.4-5.0) gm/dl 08/15/19 Range/Units 12:41 Hgb (12.5-16.0) gm/dL MCHC (32-36) g/dl RDW (11.5-14.0) % Lymphocytes % (20-51) % Lymphocytes # (1.5-3.5) k/mm3 PT (9.1-10.7) Seconds INR (Anticoag Therapy) (0.92-1.08) INR D-Dimer (0.19-0.49) ug/mL Carbon Dioxide 32.7 H (24-32.6) mmol/L Random Glucose 115 H (70-110) mg/dL ALT 8 L (19-67) U/L Alkaline Phosphatase 194 H (50-170) U/L B-Natriuretic Peptide 275 H (5-205) pg/mL Albumin 3.2 L (3.4-5.0) gm/dl Laboratory Results WBC 5.9 K/mm3 (4.0-10.5) 08/15/19 12:41 RBC 4.38 M/mm3 (4.2-5.4) 08/15/19 12:41 Hgb 12.3 gm/dL (12.5-16.0) L 08/15/19 12:41 Hct 40.0 % (37.0-47.0) 08/15/19 12:41 MCV 91.3 fl (78-100) 08/15/19 12:41 MCH 28.1 pg (27-31) 08/15/19 12:41 MCHC 30.8 g/dl (32-36) L 08/15/19 12:41 RDW 17.2 % (11.5-14.0) H 08/15/19 12:41 Plt Count 157 K/mm3 (150-450) 08/15/19 12:41 MPV 9.7 fl (8-12.5) 08/15/19 12:41 Immature Gran % (Auto) 0.30 % (0.001-0.429) 08/15/19 12:41 Immature Gran # (Auto) 0.02 K/mm3 (0.000-0.0310) 08/15/19 12:41 Neutrophils % 74.1 % (42-75.0) 08/15/19 12:41 Lymphocytes % 16.0 % (20-51) L 08/15/19 12:41 Monocytes % 7.6 % (0.0-9) 08/15/19 12:41 Eosinophils % 1.5 % (0.0-3.0) 08/15/19 12:41 Basophils % 0.5 % (0.0-1.0) 08/15/19 12:41 Nucleated RBC % 0.0 k/mm3 (0-1) 08/15/19 12:41 Neutrophils # 4.4 K/mm3 (1.3-6.0) 08/15/19 12:41 Lymphocytes # 0.95 k/mm3 (1.5-3.5) L 08/15/19 12:41 Monocytes # 0.5 k/mm3 (0.0-1.0) 08/15/19 12:41 Eosinophils # 0.1 k/mm3 (0.0-0.7) 08/15/19 12:41 Absolute Basophils 0.0 k/mm3 (0.0-0.1) 08/15/19 12:41 PT 11.4 Seconds (9.1-10.7) H 08/15/19 12:00 INR (Anticoag Therapy) 1.16 INR (0.92-1.08) H 08/15/19 12:00 PTT (Tanya) 24.5 Seconds (24-32) 08/15/19 12:00 D-Dimer 0.74 ug/mL (0.19-0.49) H 08/15/19 12:00 Sodium 142 mmol/L (132-142) 08/15/19 12:41 Plasma Sodium 142 mmol/L (130-142) 08/15/19 12:41 Potassium 3.6 mmol/L (3.4-4.6) 08/15/19 12:41 Chloride 103 mmol/L (97-106) 08/15/19 12:41 Carbon Dioxide 32.7 mmol/L (24-32.6) H 08/15/19 12:41 Anion Gap 9.9 mmol/L (6.8-13.8) 08/15/19 12:41 BUN 12 mg/dL (3-23) 08/15/19 12:41 Creatinine 0.79 mg/dL (0.4-1.4) 08/15/19 12:41 Est GFR (Non-Af Amer) 80 mL/min (60-130) 08/15/19 12:41 BUN/Creatinine Ratio 15.2 (9.0-21.6) 08/15/19 12:41 Random Glucose 115 mg/dL (70-110) H 08/15/19 12:41 Calcium 8.2 mg/dL (7.9-10.9) 08/15/19 12:41 Calcium Adj for Albumin 8.5 mg/dL (8.4-10.2) 08/15/19 12:41 Total Bilirubin 1.0 mg/dL (0.0-1.1) 08/15/19 12:41 AST 25 U/L (0-48) 08/15/19 12:41 ALT 8 U/L (19-67) L 08/15/19 12:41 Alkaline Phosphatase 194 U/L (50-170) H 08/15/19 12:41 Troponin I Less than 0.017 ng/mL (0.00-0.10) 08/15/19 12:41 B-Natriuretic Peptide 275 pg/mL (5-205) H 08/15/19 12:41 Total Protein 7.5 gm/dL (6.2-8.2) 08/15/19 12:41 Albumin 3.2 gm/dl (3.4-5.0) L 08/15/19 12:41 Assessment/Plan - Narrative Narrative: She will be diuresed through the night. Repeat lab tomorrow morning and probably discharge tomorrow back to home. She will have continuous cardiac monitoring through the night. - Assessment/Plan (1) Acute CHF (congestive heart failure) Problem: Acute Qualifiers: Heart failure type: unspecified Qualified Code(s): I50.9 - Heart failure, unspecified (2) Hypoxia Problem: Acute
[2019-08-15] MEDS: FUROSEMIDE 10 MG/ML VIAL IV SCH (20:42)
[2019-08-15] MEDS ORDERED: ROSUVASTATIN CALCIUM 20 MG TABLET PO SCH (21:00)
[2019-08-15] MEDS ORDERED: PRAMIPEXOLE DI-HCL 0.5 MG TABLET PO SCH (21:00)
[2019-08-15] MEDS ORDERED: INSULIN GLARGINE,HUM.REC.ANLOG 100 UNITS/ML VIAL SC SCH (21:00)
[2019-08-16] MEDS: FUROSEMIDE 10 MG/ML VIAL IV SCH ×2 (01:42→08:45)
[2019-08-16 05:37] LABS: Hematocrit 40.3 % (37.0-47.0); Hemoglobin 12.2 gm/dL (12.5-16.0); Mean Cell Volume 92.4 fl (78-100); Mean Corpuscular Hgb Conc 30.3 g/dl (32-36); Mean Platelet Volume 9.6 fl (8-12.5); Neutrophil # 4.2 K/mm3 (1.3-6.0); Neutrophil % 71.5 % (42-75.0); Platelet Count 179 K/mm3 (150-450); Red Blood Count 4.36 M/mm3 (4.2-5.4); Red Cell Distribution Width 17.2 % (11.5-14.0); White Blood Count 5.8 K/mm3 (4.0-10.5)
[2019-08-16 05:56] LABS: Albumin * 3.2 gm/dl (3.4-5.0); Anion Gap 6.8 mmol/L (6.8-13.8); BUN/Creatinine Ratio 10.4 (9.0-21.6); Ca. Corrected For Albumin 8.7 mg/dL (8.4-10.2); Calcium * 8.4 mg/dL (7.9-10.9); Carbon Dioxide 38.9 mmol/L (24-32.6); Potassium 2.7 mmol/L (3.4-4.6); Total Protein 7.2 gm/dL (6.2-8.2)
[2019-08-16] MEDS ORDERED: LEVOTHYROXINE SODIUM 25 MCG TABLET PO SCH (06:30)
[2019-08-16] MEDS ORDERED: LEVOTHYROXINE SODIUM 50 MCG TABLET PO SCH (06:30)
[2019-08-16] MEDS ORDERED: PANTOPRAZOLE SODIUM 20 MG TABLET.DR PO SCH (07:00)
[2019-08-16] MEDS ORDERED: INSULIN ASPART 100 UNITS/ML VIAL SC SCH (07:00)
[2019-08-16] MEDS ORDERED: INSULIN LISPRO 100 UNITS/ML VIAL SC SCH (07:00)
[2019-08-16] MEDS: PRAMIPEXOLE DI-HCL 0.5 MG TABLET PO SCH ×3 (08:39→17:09)
[2019-08-16] MEDS ORDERED: POTASSIUM CHLORIDE 20 MEQ TABLET.SA PO ONE (08:55)
[2019-08-16] MEDS ORDERED: POTASSIUM CHLORIDE IN WATER 100 ML IV ONE (08:56)
[2019-08-16] MEDS ORDERED: FERROUS SULFATE 325 MG TABLET PO SCH (09:00)
[2019-08-16] MEDS ORDERED: ESCITALOPRAM OXALATE 10 MG TAB PO SCH (09:00)
[2019-08-16] MEDS ORDERED: buPROPion HCL 150 MG TAB.SR.24H PO SCH (09:00)
[2019-08-16] MEDS ORDERED: LISINOPRIL 10 MG TABLET PO SCH (09:00)
[2019-08-16] MEDS: INSULIN LISPRO 100 UNITS/ML VIAL SC SCH ×2 (12:27→17:10)
[2019-08-16 13:34] LABS: Anion Gap 9.9 mmol/L (6.8-13.8); BUN/Creatinine Ratio 10.8 (9.0-21.6); Calcium * 8.6 mg/dL (7.9-10.9); Carbon Dioxide 34.4 mmol/L (24-32.6); Potassium 3.3 mmol/L (3.4-4.6)
--- NOTE | 2019-08-16 14:31 | DS ---
(1) Acute CHF (congestive heart failure) Problem: Acute Qualifiers: Heart failure type: unspecified Qualified Code(s): I50.9 - Heart failure, unspecified (2) Hypoxia Problem: Acute (3) Hypokalemia Problem: Acute Date of Discharge:: 08/16/19 Description of Stay: Cyndie James is a 54-year-old female presented to ER with shortness of breath. She was found to be in congestive heart failure and started on diuresing. She was also placed on oxygen which made her much more comfortable. She received 60 mg of Lasix initially in the emergency room and then I gave her another 40 mg IV 6 hours x 2 doses. She lost a total of 12 pounds or about 6 L of fluid. She is breathing and feeling much better now. Morning labs however revealed that her potassium had dropped from 3.4-2.7. I gave her 40 mg of oral KCl and 1K rider. Repeat potassium at 1300 was up to 3.4. She is feeling much better and ready to go home. She was tested for the need for home oxygen and the lowest her saturation was was 93%. She does not qualify for home oxygen. Procedures Performed: none Results and Findings: Lab Pending Results 08/15/19 12:00: D-Dimer 0.74 H 08/15/19 12:00: PT 11.4 H, INR (Anticoag Therapy) 1.16 H, PTT (Tanya) 24.5 08/15/19 12:40: Magnesium 1.6 08/15/19 12:41: WBC 5.9, RBC 4.38, Hgb 12.3 L, Hct 40.0, MCV 91.3, MCH 28.1, MCHC 30.8 L, RDW 17.2 H, Plt Count 157, MPV 9.7, Immature Gran % (Auto) 0.30, Immature Gran # (Auto) 0.02, Neutrophils % 74.1, Lymphocytes % 16.0 L, Monocytes % 7.6, Eosinophils % 1.5, Basophils % 0.5, Nucleated RBC % 0.0, Neutrophils # 4.4, Lymphocytes # 0.95 L, Monocytes # 0.5, Eosinophils # 0.1, Absolute Basophils 0.0 08/15/19 12:41: Sodium 142, Plasma Sodium 142, Potassium 3.6, Chloride 103, Carbon Dioxide 32.7 H, Anion Gap 9.9, BUN 12, Creatinine 0.79, Est GFR (Non-Af Amer) 80, BUN/Creatinine Ratio 15.2, Random Glucose 115 H, Calcium 8.2, Calcium Adj for Albumin 8.5, Total Bilirubin 1.0, AST 25, ALT 8 L, Alkaline Phosphatase 194 H, Troponin I Less than 0.017, B-Natriuretic Peptide 275 H, Total Protein 7.5, Albumin 3.2 L 08/16/19 05:20: WBC 5.8, RBC 4.36, Hgb 12.2 L, Hct 40.3, MCV 92.4, MCH 28.0, MC HC 30.3 L, RDW 17.2 H, Plt Count 179, MPV 9.6, Immature Gran % (Auto) 0.30, Immature Gran # (Auto) 0.02, Neutrophils % 71.5, Lymphocytes % 18.9 L, Monocytes % 6.9, Eosinophils % 1.7, Basophils % 0.7, Nucleated RBC % 0.0, Neutrophils # 4.2, Lymphocytes # 1.10 L, Monocytes # 0.4, Eosinophils # 0.1, Absolute Basophils 0.0 08/16/19 05:20: Sodium 145 H, Plasma Sodium 146 H, Potassium 2.7 L D, Chloride 102, Carbon Dioxide 38.9 H, Anion Gap 6.8, BUN 8, Creatinine 0.77, Est GFR (Non- Af Amer) 83, BUN/Creatinine Ratio 10.4, Random Glucose 156 H D, Calcium 8.4, Calcium Adj for Albumin 8.7, Total Bilirubin 1.0, AST 18, ALT 9 L, Alkaline Phosphatase 199 H, Total Protein 7.2, Albumin 3.2 L 08/16/19 13:15: Sodium 143 H, Plasma Sodium 144 H, Potassium 3.3 L D, Chloride 102, Carbon Dioxide 34.4 H, Anion Gap 9.9, BUN 9, Creatinine 0.83, Est GFR (Non- Af Amer) 76, BUN/Creatinine Ratio 10.8, Random Glucose 133 H, Calcium 8.6 Discharge Location: Home Disposition: [facility]: [facility] Home Health Condition: Fair Face to Face Encounter completed per CMS Guidelines: No Discharge Activity: Activity as tolerated Discharge Diet: Consistent carbs, Low fat/chol Additional Patient Instructions (free text): To see Dr. Sauceda for follow-up within the next 2 weeks. Prescriptions (Any new or edited meds): Furosemide [Lasix] 80 mg PO DAILY@1300 #30 tab Transmission Status: Received by [facility] #[id number] Complete Home Medications List: Complete Home Medication List: Levothyroxine Sodium [Synthroid] 50 mcg PO DAILY 12/08/12 Lisinopril [Zestril] 10 mg PO DAILY 12/30/15 Omeprazole [Prilosec] 20 mg PO DAILY 12/30/15 Pramipexole Di-HCl [Mirapex] 0.5 mg PO HS 12/30/15 Bupropion HCl [Wellbutrin Xl] 300 mg PO DAILY 05/17/17 Escitalopram Oxalate [Lexapro] 10 mg PO DAILY 05/17/17 Celecoxib 100 mg PO DAILY 08/15/19 Ferrous Sulfate 325 mg PO DAILY 08/15/19 Insulin Aspart [Novolog Flexpen] 25 unit SQ 1200,1700 08/15/19 Insulin Aspart [Novolog Flexpen] 30 unit SQ 0700 08/15/19 Insulin Glargine,Hum.rec.anlog [Basaglar Kwikpen U-100] 30 unit SQ HS 08/15/19 Pramipexole Di-HCl [Mirapex] 1 mg PO TID 08/15/19 Rosuvastatin Calcium [Crestor] 20 mg PO HS 08/15/19 Furosemide [Lasix] 80 mg PO DAILY@1300 #30 tab 08/16/19
[2019-08-16 17:28] VITALS: BP 99/41
[2019-08-17] MEDS ORDERED: FUROSEMIDE 80 MG TABLET PO SCH (13:00)
== END 2019-08-16 17:32 | disposition home health service (06) ==
LOC: MS 12:19 → ER 12:19 → MS 17:34
PROVIDERS: ADMIT Family Medicine; ATTEND Family Medicine
CPT/HCPCS: 36415; 71010; 71045; 71275; 80048; 80053; 83519; 83735; 83880; 84484; 85025; 85379; 85610; 85730; 93005; 93970; 94760; 96365; 96372; 96375; 99285; G0378; Q9967

== ENCOUNTER 2020-01-09 23:50 | Observation (INO) ==
--- NOTE | 2020-01-10 00:19 | ERNOTE ---
Dyspnea - General Presenting Symptoms: shortness of breath Time Seen by Provider: 01/09/20 23:50 Source: patient Exam Limitations: no limitations - Immun/Allergies/Home Medications Immunizations: IMMUNIZATION HX Immunizations Up to Date Yes History of Influenza Vaccine Yes Hx Pneumococcal Vaccination More Information Required Allergies/Adverse Reactions: Allergies No Known Allergies Allergy (Verified 01/10/20 00:01) Home Medications: HOME MEDICATIONS Levothyroxine Sodium [Synthroid] 50 mcg PO DAILY 12/08/12 [Last Taken 12/08/12 07:00 25 mcg] Lisinopril [Zestril] 10 mg PO DAILY 12/30/15 [Last Taken Unknown] Omeprazole [Prilosec] 20 mg PO DAILY 12/30/15 [Last Taken Unknown] Pramipexole Di-HCl [Mirapex] 0.5 mg PO HS 12/30/15 [Last Taken Unknown] Bupropion HCl [Wellbutrin Xl] 300 mg PO DAILY 05/17/17 [Last Taken Unknown] Escitalopram Oxalate [Lexapro] 10 mg PO DAILY 05/17/17 [Last Taken Unknown] Celecoxib 100 mg PO DAILY 08/15/19 [Last Taken Unknown] Ferrous Sulfate 325 mg PO DAILY 08/15/19 [Last Taken Unknown] Insulin Aspart [Novolog Flexpen] 25 unit SQ 1200,1700 08/15/19 [Last Taken Unknown] Insulin Aspart [Novolog Flexpen] 30 unit SQ 0700 08/15/19 [Last Taken Unknown] Insulin Glargine,Hum.rec.anlog [Basaglar Kwikpen U-100] 30 unit SQ HS 08/15/19 [Last Taken Unknown] Pramipexole Di-HCl [Mirapex] 1 mg PO TID 08/15/19 [Last Taken Unknown] Rosuvastatin Calcium [Crestor] 20 mg PO HS 08/15/19 [Last Taken Unknown] furosemide 80 mg tablet 80 mg PO BID #0.1 tab 08/20/19 [Last Taken Unknown] Durable Medical Equipment See Rx Instructions .ROUTE .MEDSUPPLY #1 ea 08/22/19 [Last Taken Unknown] nystatin 100,000 unit/gram topical powder 1 applic TP TID #30 g 09/18/19 [Last Taken Unknown] Clindamycin HCl [Cleocin HCl] 300 mg PO QID #40 cap 12/30/19 [Last Taken Unknown] Etodolac 300 mg PO BID 01/10/20 [Last Taken Unknown] - History of Present Illness Narrative: Patient is here for shortness of breath, which she has had increasingly for about two weeks. At that time she fell and has been treated with pain medications. She states that her PCP started her on a new pain medication (NSAID?) recently,also that her lasix was decreased from 80mg bid to 40mg daily. She was admitted and diagnosed with CHF in July 2019, started on lasix, she did not qualify for home O2 at that time, she denies any lung disease. She followed up with Dr Kevin and qualified for home O2 at that visit, but states that she was not able to get it and didn't follow up with Dr Kevin but is seeing a doctor in [facility]. On EMS arrival today her O2 sats were 83% on RA. She denies any fever, chills, significant URI symptoms except for a slight cough, denies recent travel or exposure to COVID. 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 Denies: currently on antibiotics Review of Systems - Review of Systems Constitutional: Absent: fever, chills ENT: Present: nose congestion. Absent: ear pain, sore throat Respiratory: Present: See HPI, shortness of breath Cardiology: Absent: chest pain Gastrointestinal/Abdominal: Absent: nausea, vomiting, abdominal pain Genitourinary: Present: no symptoms reported Musculoskeletal: Absent: back pain Skin: Present: rash Neurological: Absent: headache Medical History (Last Reviewed 01/10/20 @ 00:18 by Demi Hurt MD) CHF (congestive heart failure) Diabetes Hypothyroidism Morbid obesity Surgical History: Surgical History (Last Reviewed 01/10/20 @ 00:18 by Demi Hurt MD) H/O hernia repair abdominal History of carpal tunnel surgery History of cholecystectomy History of mandibular surgery Family History: Family History (Last Reviewed 01/10/20 @ 02:14 by Zandra Green RN) Sister Diabetes Father CHF (congestive heart failure) Father Lung cancer Social History: (Last Reviewed 01/10/20 @ 02:14 by Zandra Green RN) Tobacco: Smoking Status: Never smoker Alcohol: alcohol intake: never Substance Use: substance use type: does not use Physical Exam - Physical Exam General Appearance: Present: wd/wn, alert, no apparent distress, obese - morbidly Ears, Nose, Throat: Present: normal ENT inspection, normal pharynx Respiratory: Present: no respiratory distress - speaks in 8-9 word sentences, no accessory muscle use, lungs clear, decreased breath sounds Cardiovascular/Chest: Present: regular rate, rhythm, no murmur Gastrointestinal/Abdominal: Present: nontender, nondistended, soft Extremity Exam: Present: no edema - morbidly obesity Neurological Exam: Present: alert, oriented, normal mood/affect Skin Exam: Present: normal color, warm/dry, skin rash - papular rash on both arms, back and abdomen (scabies?) Progress - Results and Orders Patient's Lab Results:: I have reviewed the patient's lab results. - Vital Signs Patient's Vital Signs:: I have reviewed the patient's vital signs. Vital Signs: Vital Signs 01/09/20 23:51 01/10/20 00:00 Temperature 37.1 C Pulse Rate 98 Respiratory Rate 25 H Blood Pressure 157/79 H O2 Sat by Pulse Oximetry 84 L 94 - EKG EKG #1 EKG: NSR, unchanged from 07/2019 EKG read: Interp. by me - X-Ray X-Ray #1 X-Ray: chest - cardiomegalie, venous congestion Interpretation: Interp. by me - Progress/Reassessment Chief Complaint: Dyspnea Progress Note-Subjective: 01/10/20 01:20 patient had 400ml urine output shortly after 40mg of lasix IV, with exertion of going to the commode O2 sats dropped to 80% discussed with brittany Blanco to admit for CHF exacerbation Departure Clinical Impression: Scabies Acute CHF (congestive heart failure) Qualifiers: Heart failure type: unspecified Qualified Code(s): I50.9 - Heart failure, unspecified - Departure Disposition: Still a patient Condition: Stable
[2020-01-10 00:33] LABS: Hematocrit 43.1 % (37.0-47.0); Hemoglobin 13.2 gm/dL (12.5-16.0); Mean Cell Volume 97.5 fl (78-100); Mean Corpuscular Hemoglobin 29.9 pg (27-31); Mean Corpuscular Hgb Conc 30.6 g/dl (32-36); Mean Platelet Volume 10.4 fl (8-12.5); Neutrophil # 4.3 K/mm3 (1.3-6.0); Neutrophil % 74.4 % (42-75.0); Platelet Count 113 K/mm3 (150-450); Red Blood Count 4.42 M/mm3 (4.2-5.4); Red Cell Distribution Width 16.1 % (11.5-14.0); White Blood Count 5.8 K/mm3 (4.0-10.5)
[2020-01-10] MEDS ORDERED: FUROSEMIDE 10 MG/ML VIAL IV ONE ×2 (00:44→08:02)
[2020-01-10 00:49] LABS: Troponin I Less than 0.017 ng/mL (0.00-0.10)
[2020-01-10 00:51] LABS: ALT 11 U/L (19-67); AST 19 U/L (0-48); Albumin * 3.1 gm/dl (3.4-5.0); Alkaline Phosphatase * 177 U/L (50-170); Anion Gap 8.8 mmol/L (6.8-13.8); BNP * 995 pg/mL (5-205); Bilirubin, Total 0.9 mg/dL (0.0-1.1); Blood Urea Nitrogen 18 mg/dL (3-23); Ca. Corrected For Albumin 9.1 mg/dL (8.4-10.2); Calcium * 8.7 mg/dL (7.9-10.9); Carbon Dioxide 34.3 mmol/L (24-32.6); Chloride 105 mmol/L (97-106); Glucose * 150 mg/dL (70-110); Potassium 4.1 mmol/L (3.4-4.6); Sodium 144 mmol/L (132-142); Total Protein 7.5 gm/dL (6.2-8.2)
[2020-01-10] MEDS ORDERED: PERMETHRIN 60 APPL TUBE TP ONE ×2 (01:34→09:15)
[2020-01-10] MEDS ORDERED: LEVOTHYROXINE SODIUM 50 MCG TABLET PO SCH (07:00)
[2020-01-10] MEDS ORDERED: PANTOPRAZOLE SODIUM 20 MG TABLET.DR PO SCH (07:00)
[2020-01-10] MEDS ORDERED: INSULIN ASPART 30 UNIT SQ SCH (07:00)
--- NOTE | 2020-01-10 08:02 | HP ---
Chief Complaint - Chief Complaint Date of Service: 01/10/20 Time of Service: 08:00 Chief Complaint: shortness of breath History of Present Illness: Patient with past medical history of morbid obesity presented to the ED with shortness of breath that has been ongoing for a couple weeks. Her PCP is outside our system, but her Lasix dose was reportedly decreased from 80 mg twice daily to 40 mg twice daily. Cyndie is unsure why this change happened. She did not notice lower extremity swelling. She was hospitalized to our facility back in July, and an attempt was made to get her home oxygen. She reports her insurance company did not think she qualified to have home oxygen. In the ED, chest x-ray did not show acute process. BNP was 995. WBC was 5.8. Heart rate was normal, she was a bit tachypneic up to 25 on admission. Her oxygenation was 84 initially, improved to the 90s with 2 L O2. Permethrin was also ordered in the ED for reported scabies. Patient does not feel like she has scabies. She reports giving her a bath lately, and could see fleas on the cat. Staff also states that she was in the ED a week ago with bedbugs. Medical History (Last Reviewed 01/10/20 @ 02:14 by Zandra Green RN) CHF (congestive heart failure) Diabetes Hypothyroidism Morbid obesity Surgical History: Surgical History (Last Reviewed 01/10/20 @ 00:18 by Demi Hurt MD) H/O hernia repair abdominal History of carpal tunnel surgery History of cholecystectomy History of mandibular surgery Family History: Family History (Last Reviewed 01/10/20 @ 02:14 by Zandra Green RN) Sister Diabetes Father CHF (congestive heart failure) Father Lung cancer Social History: (Last Reviewed 01/10/20 @ 02:14 by Zandra Green RN) Tobacco: Smoking Status: Never smoker Alcohol: alcohol intake: never Substance Use: substance use type: does not use Review Of Systems (GEN) - Review of Systems Generalized/Overall Review: Absent: Fever Respiratory: Present: Shortness of Breath. Absent: Cough Cardiac: Absent: Chest Pain, Edema Abdominal: Absent: Vomiting Genitourinary: Present: No Symptoms Reported Musculoskeletal: Present: No Symptoms Reported Neurological: Present: No Symptoms Reported Skin: Present: Rash Immunizations: IMMUNIZATION HX Immunizations Up to Date Yes History of Influenza Vaccine Yes Hx Pneumococcal Vaccination More Information Required Allergies/Adverse Reactions: Allergies Allergy/AdvReac Type Severity Reaction Status Date / Time No Known Allergies Allergy Verified 01/10/20 00:01 Home Medications: HOME MEDICATIONS Levothyroxine Sodium [Synthroid] 50 mcg PO DAILY 12/08/12 [Last Taken 12/08/12 07:00 25 mcg] Lisinopril [Zestril] 10 mg PO DAILY 12/30/15 [Last Taken Unknown] Omeprazole [Prilosec] 20 mg PO DAILY 12/30/15 [Last Taken Unknown] Pramipexole Di-HCl [Mirapex] 0.5 mg PO HS 12/30/15 [Last Taken Unknown] Bupropion HCl [Wellbutrin Xl] 300 mg PO DAILY 05/17/17 [Last Taken Unknown] Escitalopram Oxalate [Lexapro] 10 mg PO DAILY 05/17/17 [Last Taken Unknown] Celecoxib 100 mg PO DAILY 08/15/19 [Last Taken Unknown] Ferrous Sulfate 325 mg PO DAILY 08/15/19 [Last Taken Unknown] Insulin Aspart [Novolog Flexpen] 25 unit SQ 1200,1700 08/15/19 [Last Taken Unknown] Insulin Aspart [Novolog Flexpen] 30 unit SQ 0700 08/15/19 [Last Taken Unknown] Insulin Glargine,Hum.rec.anlog [Basaglar Kwikpen U-100] 30 unit SQ HS 08/15/19 [Last Taken Unknown] Pramipexole Di-HCl [Mirapex] 1 mg PO TID 08/15/19 [Last Taken Unknown] Rosuvastatin Calcium [Crestor] 20 mg PO HS 08/15/19 [Last Taken Unknown] furosemide 80 mg tablet 80 mg PO BID #0.1 tab 08/20/19 [Last Taken Unknown] Durable Medical Equipment See Rx Instructions .ROUTE .MEDSUPPLY #1 ea 08/22/19 [Last Taken Unknown] nystatin 100,000 unit/gram topical powder 1 applic TP TID #30 g 09/18/19 [Last Taken Unknown] Clindamycin HCl [Cleocin HCl] 300 mg PO QID #40 cap 12/30/19 [Last Taken Unknown] Etodolac 300 mg PO BID 01/10/20 [Last Taken Unknown] Exam - Exam Vital Signs: Vital Signs - Last Taken Temp 36.8 C 01/10/20 02:20 Pulse 91 01/10/20 02:20 Resp 22 H 01/10/20 02:20 BP 158/85 H 01/10/20 02:20 Pulse Ox 94 01/10/20 02:20 Constitutional: Present: Alert, Cooperative, Morbidly obese Respiratory: Present: other - distant lung sounds. On 2 L via NC Cardiovascular/Chest: Present: regular rate, rhythm Abdomen: Present: nontender, obese Extremity: Present: calf tenderness. Absent: lower extremity edema Skin Exam: Present: skin rash - macular, violaceous, left hand and wrist. finger webs without lesions Eye contact: Present: cooperative Diagnostic Studies: Abnormal Lab Results 01/10/20 01/10/20 Range/Units 00:23 00:23 MCHC 30.6 L (32-36) g/dl RDW 16.1 H (11.5-14.0) % Plt Count 113 L (150-450) K/mm3 Immature Gran % (Auto) 0.50 H (0.001-0.429) % Lymphocytes % 16.2 L (20-51) % Lymphocytes # 0.94 L (1.5-3.5) k/mm3 Sodium 144 H (132-142) mmol/L Plasma Sodium 145 H (130-142) mmol/L Carbon Dioxide 34.3 H (24-32.6) mmol/L BUN/Creatinine Ratio 25.0 H (9.0-21.6) Random Glucose 150 H (70-110) mg/dL ALT 11 L (19-67) U/L Alkaline Phosphatase 177 H (50-170) U/L B-Natriuretic Peptide 995 H (5-205) pg/mL Albumin 3.1 L (3.4-5.0) gm/dl Laboratory Results WBC 5.8 K/mm3 (4.0-10.5) 01/10/20 00:23 RBC 4.42 M/mm3 (4.2-5.4) 01/10/20 00:23 Hgb 13.2 gm/dL (12.5-16.0) 01/10/20 00:23 Hct 43.1 % (37.0-47.0) 01/10/20 00:23 MCV 97.5 fl (78-100) 01/10/20 00:23 MCH 29.9 pg (27-31) 01/10/20 00:23 MCHC 30.6 g/dl (32-36) L 01/10/20 00:23 RDW 16.1 % (11.5-14.0) H 01/10/20 00:23 Plt Count 113 K/mm3 (150-450) L 01/10/20 00:23 MPV 10.4 fl (8-12.5) 01/10/20 00:23 Immature Gran % (Auto) 0.50 % (0.001-0.429) H 01/10/20 00:23 Immature Gran # (Auto) 0.03 K/mm3 (0.000-0.0310) 01/10/20 00: Neutrophils % 74.4 % (42-75.0) 01/10/20 00: Lymphocytes % 16.2 % (20-51) L 01/10/20 00:23 Monocytes % 6.6 % (0.0-9) 01/10/20 00: Eosinophils % 1.6 % (0.0-3.0) 01/10/20 00: Basophils % 0.7 % (0.0-1.0) 01/10/20 00: Nucleated RBC % 0.0 k/mm3 (0-1) 01/10/20 00: Neutrophils # 4.3 K/mm3 (1.3-6.0) 01/10/20 00:23 Lymphocytes # 0.94 k/mm3 (1.5-3.5) L 01/10/20 00:23 Monocytes # 0.4 k/mm3 (0.0-1.0) 01/10/20 00:23 Eosinophils # 0.1 k/mm3 (0.0-0.7) 01/10/20 00:23 Absolute Basophils 0.0 k/mm3 (0.0-0.1) 01/10/20 00:23 Sodium 144 mmol/L (132-142) H 01/10/20 00:23 Plasma Sodium 145 mmol/L (130-142) H 01/10/20 00:23 Potassium 4.1 mmol/L (3.4-4.6) D 01/10/20 00:23 Chloride 105 mmol/L (97-106) 01/10/20 00:23 Carbon Dioxide 34.3 mmol/L (24-32.6) H 01/10/20 00:23 Anion Gap 8.8 mmol/L (6.8-13.8) 01/10/20 00:23 BUN 18 mg/dL (3-23) D 01/10/20 00:23 Creatinine 0.72 mg/dL (0.4-1.4) 01/10/20 00:23 Est GFR (Non-Af Amer) 89 mL/min (60-130) 01/10/20 00: BUN/Creatinine Ratio 25.0 (9.0-21.6) H 01/10/20 00:23 Random Glucose 150 mg/dL (70-110) H 01/10/20 00:23 Calcium 8.7 mg/dL (7.9-10.9) 01/10/20 00: Calcium Adj for Albumin 9.1 mg/dL (8.4-10.2) 01/10/20 00: Total Bilirubin 0.9 mg/dL (0.0-1.1) 01/10/20 00: AST 19 U/L (0-48) 01/10/20 00:23 ALT 11 U/L (19-67) L 01/10/20 00:23 Alkaline Phosphatase 177 U/L (50-170) H 01/10/20 00:23 Troponin I Less than 0.017 ng/mL (0.00-0.10) 01/10/20 00: B-Natriuretic Peptide 995 pg/mL (5-205) H 01/10/20 00:23 Total Protein 7.5 gm/dL (6.2-8.2) 01/10/20 00:23 Albumin 3.1 gm/dl (3.4-5.0) L 01/10/20 00:23 Assessment/Plan - Assessment/Plan (1) Acute CHF (congestive heart failure) Assessment: She was admitted for exacerbation of heart failure. She has been seeing an outside physician for primary care, and we do not have an echo in her chart currently. Chest x-ray did not reveal significant pulmonary edema or effusion, and BNP was mildly elevated at 995. Negative troponin, no signs of ischemia or infarct on EKG. She does not use oxygen at baseline, but is currently requiring 2 L. Afebrile, heart rate normal. She does have a bit of tachypnea with respiratory rate up to 25 on admission. She reports her Lasix dose was recently decreased and she is not sure why. Will resume 80 mg Lasix twice daily and assess her oxygen requirements. She was given 40 mg IV lasix overnight, and will give an additional 20 mg IV lasix this morning. If weights are correct, she is down 8 pounds since admission. I suspect her shortness of breath is an element of pickwickian syndrome given her BMI of 75. If she is able to ambulate and maintain oxygenation, okay to go home later today. She has tried to get oxygen in the past, and I suspect giving her oxygen will reduce hospitalizations. If she requires oxygen with ambulation, also hope to get this arranged today so she can discharge by this evening. Problem: Acute Qualifiers: Heart failure type: unspecified Qualified Code(s): I50.9 - Heart failure, unspecified (2) Infestation Assessment: Staff reports she had bed bugs in the ED last week. ED doc reported scabies in her note, but Cyndie only has a macular rash of her left hand and wrist. I do not see linear lesions. She bathed her cat, and could see fleas jumping off of it. The rash is not itchy, and does not appear acutely inflamed. I do not believe treatment is needed currently, but recommend she treat her home environment for bugs. Permethrim was ordered in the ED, but was not administered. Problem: Chronic (3) Morbid obesity with BMI of 70 and over, adult Problem: Chronic
[2020-01-10] MEDS: NYSTATIN 15 APPL BTL TP SCH ×2 (08:49→14:21)
[2020-01-10] MEDS ORDERED: LISINOPRIL 10 MG TABLET PO SCH (09:00)
[2020-01-10] MEDS ORDERED: ESCITALOPRAM OXALATE 10 MG TAB PO SCH (09:00)
[2020-01-10] MEDS ORDERED: FUROSEMIDE 80 MG TABLET PO SCH (09:00)
[2020-01-10] MEDS ORDERED: buPROPion HCL 150 MG TAB.SR.24H PO SCH (09:00)
[2020-01-10] MEDS ORDERED: INSULIN ASPART SQ SCH (12:00)
--- NOTE | 2020-01-10 13:21 | PN ---
Progess Note - Interim Date: 01/10/20 Time: 13:20 Narrative: 01/10/20 13:20 Her oxygenation decreased to 85% at rest on room air, and came up to 92% with 3L via NC. Will send with oxygen for home use continuously due to her heart failure.
--- NOTE | 2020-01-10 15:15 | DS ---
(1) Acute CHF (congestive heart failure) Problem: Resolved Qualifiers: Heart failure type: unspecified Qualified Code(s): I50.9 - Heart failure, unspecified (2) Infestation Problem: Chronic (3) Morbid obesity with BMI of 70 and over, adult Problem: Chronic Hospital Course: Patient with past medical history of morbid obesity presented to the ED with shortness of breath that has been ongoing for a couple weeks. Her PCP is outside our system, but her Lasix dose was reportedly decreased from 80 mg twice daily to 40 mg twice daily. Cyndie is unsure why this change happened. She did not notice lower extremity swelling. She was hospitalized to our facility back in July, and an attempt was made to get her home oxygen. She reports her insurance company did not think she qualified to have home oxygen. In the ED, chest x-ray did not show acute process. BNP was 995. WBC was 5.8. Heart rate was normal, she was a bit tachypneic up to 25 on admission. Her oxygenation was 84 initially, improved to the 90s with 2 L O2. She was given 40 mg IV lasix in the ED, and 20 mg IV lasix the following morning. Her weight decreased by 8 pounds overnight. She required 3 L O2 to keep oxygenation greater than 90%. It was felt that a large portion of her dyspnea is due to her morbid obesity, and BMI of 75, and she likely has pickwickian syndrome. She reports using a CPAP at night. She currently qualifies for oxygen, and supplies were sent to [facility]. Permethrin was also ordered in the ED for reported scabies. Patient does not feel like she has scabies. She reports giving her a bath lately, and could see fleas on the cat. Staff also states that she was in the ED a week ago with bedbugs. She has a macular rash on her right hand and wrist that is not i tching, and appears to be in the resolving stages. Procedures Performed: none Results and Findings: Lab Pending Results 01/10/20 00:23: WBC 5.8, RBC 4.42, Hgb 13.2, Hct 43.1, MCV 97.5, MCH 29.9, MCHC 30.6 L, RDW 16.1 H, Plt Count 113 L, MPV 10.4, Immature Gran % (Auto) 0.50 H, Immature Gran # (Auto) 0.03, Neutrophils % 74.4, Lymphocytes % 16.2 L, Monocytes % 6.6, Eosinophils % 1.6, Basophils % 0.7, Nucleated RBC % 0.0, Neutrophils # 4.3, Lymphocytes # 0.94 L, Monocytes # 0.4, Eosinophils # 0.1, Absolute Basophils 0.0 01/10/20 00:23: Sodium 144 H, Plasma Sodium 145 H, Potassium 4.1 D, Chloride 105, Carbon Dioxide 34.3 H, Anion Gap 8.8, BUN 18 D, Creatinine 0.72, Est GFR (Non-Af Amer) 89, BUN/Creatinine Ratio 25.0 H, Random Glucose 150 H, Calcium 8.7, Calcium Adj for Albumin 9.1, Total Bilirubin 0.9, AST 19, ALT 11 L, Alkaline Phosphatase 177 H, Troponin I Less than 0.017, B-Natriuretic Peptide 995 H, Total Protein 7.5, Albumin 3.1 L Discharge Location: Home Disposition: Home Health Service Condition: Stable Discharge Activity: Activity as tolerated Discharge Diet: Resume usual diet Problem Oriented Discharge Instructions to Patient/Family: Heart Failure, [id number] Additional Patient Instructions (free text): Please schedule her with her PCP, or an solder deposit operator for TCM follow up. Resume [facility] Home Health at discharge. Fax discharge summary, orders, and medications. Complete Home Medications List: Complete Home Medication List: Levothyroxine Sodium [Synthroid] 50 mcg PO DAILY 12/08/12 Lisinopril [Zestril] 10 mg PO DAILY 12/30/15 Omeprazole [Prilosec] 20 mg PO DAILY 12/30/15 Pramipexole Di-HCl [Mirapex] 0.5 mg PO HS 12/30/15 Bupropion HCl [Wellbutrin Xl] 300 mg PO DAILY 05/17/17 Escitalopram Oxalate [Lexapro] 10 mg PO DAILY 05/17/17 Celecoxib 100 mg PO DAILY 08/15/19 Ferrous Sulfate 325 mg PO DAILY 08/15/19 Insulin Aspart [Novolog Flexpen] 25 unit SQ 1200,1700 08/15/19 Insulin Aspart [Novolog Flexpen] 30 unit SQ 0700 08/15/19 Insulin Glargine,Hum.rec.anlog [Basaglar Kwikpen U-100] 30 unit SQ HS 08/15/19 Pramipexole Di-HCl [Mirapex] 1 mg PO TID 08/15/19 Rosuvastatin Calcium [Crestor] 20 mg PO HS 08/15/19 furosemide 80 mg tablet 80 mg PO BID #0.1 tab 08/20/19 Durable Medical Equipment See Rx Instructions .ROUTE .MEDSUPPLY #1 ea 08/22/19 nystatin 100,000 unit/gram topical powder 1 applic TP TID #30 g 09/18/19 Clindamycin HCl [Cleocin HCl] 300 mg PO QID #40 cap 12/30/19 Etodolac 300 mg PO BID 01/10/20
[2020-01-10 16:47] VITALS: BP 143/78
[2020-01-10] MEDS ORDERED: INSULIN GLARGINE SQ SCH (21:00)
[2020-01-10] MEDS ORDERED: [UNRECOGNIZED DRUG - OTHER] SQ SCH (21:00)
[2020-01-10] MEDS ORDERED: PRAMIPEXOLE DI-HCL 0.5 MG TABLET PO SCH (21:00)
== END 2020-01-10 17:46 | disposition home health service (06) ==
LOC: MS 23:50 → ER 23:50 → MS 01-10 01:50
PROVIDERS: ADMIT Family Medicine; ATTEND Family Medicine
CPT/HCPCS: 36415; 71010; 71045; 80053; 83519; 83880; 84484; 85025; 93005; 94760; 96374; 96376; 99284; 99285; G0378